=== PATIENT | male | born 1975 | race Caucasian/White ===

== ENCOUNTER 2020-04-22 07:27 | Emergency (ER) | payer OTHER ==
[~2020-04-22] VITALS: Ht 175.3 cm; Wt 72.6 kg
[2020-04-22 07:35] VITALS: BP 111/81
--- NOTE | 2020-04-22 07:58 | NUR ---
Patient discharged to home in stable condition. Written and verbal after care instructions given. Patient verbalizes understanding of instruction. Prescription given, left in no distress.
[2020-04-22] MEDS ORDERED: SULFAMETH/TRIMETH 800/160 MG 1 UDTAB TABLET PO ONE (08:00)
== END 2020-04-22 07:58 | disposition home or self-care (01) ==
LOC: ER 07:34
DX: N48.89 Other specified disorders of penis (principal); R21 Rash and other nonspecific skin eruption

== ENCOUNTER 2020-05-02 18:44 | Emergency (ER) | payer OTHER ==
[~2020-05-02] VITALS: Ht 175.3 cm; Wt 72.6 kg
[2020-05-02 18:53] VITALS: BP 149/74
[2020-05-02] MEDS ORDERED: LIDOCAINE 1%-EPI 1:100,000 20 ML VIAL ONE (19:03)
== END 2020-05-02 20:00 | disposition home or self-care (01) ==
LOC: ER 18:48
DX: S61.411A Laceration without foreign body of right hand, initial encounter (principal); Z60.2 Problems related to living alone; W22.8XXA Striking against or struck by other objects, initial encounter; Y93.89 Activity, other specified; Y92.89 Other specified places as the place of occurrence of the external cause; Y99.8 Other external cause status
CPT/HCPCS: 12001; 99283; J3490

== ENCOUNTER 2020-08-29 18:00 | Emergency (ER) | payer OTHER ==
[~2020-08-29] VITALS: Ht 175.3 cm; Wt 72.6 kg
[2020-08-29 18:45] VITALS: BP 133/87
--- NOTE | 2020-08-29 18:45 | NUR ---
covid swab and rapid influenza swab sent to lab.
--- NOTE | 2020-08-29 18:46 | NUR ---
Patient discharged to home in stable condition. Written and verbal after care instructions given. Patient verbalizes understanding of instruction.
== END 2020-08-29 18:46 | disposition home or self-care (01) ==
LOC: ER 18:07
DX: J02.9 Acute pharyngitis, unspecified (principal); Z20.822 Contact with and (suspected) exposure to COVID-19
CPT/HCPCS: 87070; 87880; 99283; C9803; U0003; 86403-TC

== ENCOUNTER 2020-12-06 13:40 | Emergency (ER) | payer OTHER ==
[~2020-12-06] VITALS: Ht 175.3 cm; Wt 72.6 kg
[2020-12-06 13:45] VITALS: BP 141/83
--- NOTE | 2020-12-06 13:48 | NUR ---
URINE SPECIMEN COLLECTED AND SENT TO LAB.
[2020-12-06] MEDS ORDERED: DOXY100T2 PO (15:22)
[2020-12-06] MEDS ORDERED: CEFTRIAXONE 1 G VIAL IM ONE (15:30)
[2020-12-06] MEDS ORDERED: DOXYCYCLINE HYCLATE (100 MG) 100 MG TABLET PO ONE (15:30)
[2020-12-06] MEDS ORDERED: DOXYCYCLINE HYCLATE (100 MG) 100 MG TABLET ONE (15:39)
[2020-12-06] MEDS ORDERED: CEFTRIAXONE 500 MG VIAL ONE (15:39)
[2020-12-06] MEDS ORDERED: LIDOCAINE /MPF 1% VIAL 5 ML VIAL ONE (15:40)
[2020-12-06 16:28] LABS: BILIRUBIN,URINE Negative (NEGATIVE); COLOR,URINE YELLOW (YELLOW); LEUKOCYTE ESTERASE ,URINE Trace (NEGATIVE); NITRITE, URINE Negative (NEGATIVE); PH,URINE 8.5 (5.0-8.0); PROTEIN,URINE Trace mg/dl (NEGATIVE); UGLUCOSE Negative (NEGATIVE)
[2020-12-06 16:34] LABS: BACTERIA,URINE Few /HPF (None Seen); SQUAMOUS EPITHELIAL CELL,UR Few /HPF (None Seen)
== END 2020-12-06 16:14 | disposition home or self-care (01) ==
LOC: ER 13:46
DX: N34.2 Other urethritis (principal); Z60.2 Problems related to living alone
CPT/HCPCS: 81001; 87086; 87491; 87591; 96372; 99283; J0696; J3490

== ENCOUNTER 2021-02-21 12:46 | Emergency (ER) | payer OTHER ==
[~2021-02-21] VITALS: Ht 175.3 cm; Wt 74.8 kg
[~2021-02-21 12:46] MED LIST: DOXY100T2 PO
[2021-02-21 12:56] VITALS: BP 136/83
[2021-02-21] MEDS ORDERED: IBUP-1955 PO (15:41)
[2021-02-21] MEDS ORDERED: CYCL10TA9 PO (15:41)
[2021-02-21] MEDS ORDERED: MUPI22OI2 TP (15:41)
--- NOTE | 2021-02-21 15:45 | NUR ---
Patient discharged to home in stable condition. Written and verbal after care instructions given. Patient verbalizes understanding of instruction.
== END 2021-02-21 15:49 | disposition home or self-care (01) ==
LOC: ER 12:55
DX: M62.838 Other muscle spasm (principal); L98.9 Disorder of the skin and subcutaneous tissue, unspecified; M25.512 Pain in left shoulder; Z60.2 Problems related to living alone
CPT/HCPCS: 72050-TC; 73030-TC

== ENCOUNTER 2022-06-30 18:04 | Emergency (ER) | payer MEDICAID, OTHER ==
[~2022-06-30] VITALS: Ht 175.3 cm; Wt 72.6 kg
[~2022-06-30 18:04] MED LIST changes: +CYCL10TA9 PO; +IBUP-1955 PO; +MUPI22OI2 TP
--- NOTE | 2022-06-30 18:18 | NUR ---
PT EVELINA FROM HOME ACCOMPANIED BY PAM. PER EMS REPORT, BROTHER CALLED 911 S/P PATIENT TOLD HIM HE IS GONNA HANG HIMSELF. PT DENIES SI WHILE BEING TRIAGE. PAM SKINNER PUT PATIENT ON 5150 HOLD FOR DTS. TACHYCARDIC JACKER. SITTER AT BEDSIDE. AWAITING MD GREEN.
--- NOTE | 2022-06-30 18:31 | NUR ---
DR GENAO AT BEDSIDE FOR EVAL.
--- NOTE | 2022-06-30 18:40 | NUR ---
RETENTION REPRESENTATIVE AT BEDSIDE FOR BLOOD DRAW. PT UNABLE TO PROVIDE URINE SAMPLE AT THIS TIME PROVIDED W ORAL FLUIDS. URINAL AT BEDSIDE.
[2022-06-30 19:39] LABS: ALANINE AMINOTRANSFERASE 23 U/L (12-78); ALBUMIN 3.4 g/dL (3.4-5.0); ALCOHOL, BLOOD 3 mg/dL (0-0); ALKALINE PHOSPHATASE 79 U/L (46-116); ASPARTATE AMINOTRANSFERASE 21 U/L (15-37); BILIRUBIN,DIRECT 0.1 mg/dL (0.0-0.2); BILIRUBIN,TOTAL 0.5 mg/dL (0.2-1.0); CARBON DIOXIDE 30 mmol/L (21-32); CHLORIDE 105 mmol/L (98-107); CREATININE 1.2 mg/dL (0.6-1.3); GLUCOSE 105 mg/dL (74-106); POTASSIUM 3.9 mmol/L (3.5-5.1); SODIUM SERUM 138 mmol/L (136-145); TOTAL PROTEIN, SERUM 7.2 g/dL (6.4-8.2); UREA NITROGEN, BLOOD 21 mg/dL (7-18)
[2022-06-30 19:41] LABS: ACETAMINOPHEN 0 ug/ml (10-30)
--- NOTE | 2022-06-30 20:39 | NUR ---
COVID ANTIGEN SWAB COLLECTED AND SENT TO LAB
[2022-06-30 21:09] LABS: BASOPHILS # (AUTO) 0.1 K/uL (0.0-0.2); BASOPHILS % (AUTO) 0.9 % (0.0-2.0); EOSINOPHILS % (AUTO) 1.6 % (0.0-6.0); HEMATOCRIT 42 % (39-51); HEMOGLOBIN 14.3 g/dL (13.5-17.5); LYMPHOCYTES % (AUTO) 31.3 % (20.0-44.0); MEAN CORPUSCULAR HGB CONC 34 g/dl (31.0-36.0); MEAN CORPUSCULAR VOLUME 88 fL (80-96); MONOCYTES # (AUTO) 0.9 K/uL (0.1-1.30); MONOCYTES % (AUTO) 9.1 % (2.0-12.0); NEUTROPHILS # (AUTO) 5.5 K/uL (1.8-8.9); NEUTROPHILS % (AUTO) 57.1 % (43.0-81.0); PLATELET COUNT (AUTO) 307 K/uL (150-450); RED BLOOD CELL COUNT(AUTO) 4.79 MIL/uL (4.5-6.0); WHITE BLOOD COUNT (AUTO) 9.5 K/uL (4.3-11.0)
[2022-07-01 01:10] LABS: BILIRUBIN,URINE NEGATIVE (NEGATIVE); COLOR,URINE YELLOW (YELLOW); LEUKOCYTE ESTERASE ,URINE NEGATIVE (NEGATIVE); NITRITE, URINE NEGATIVE (NEGATIVE); PROTEIN,URINE NEGATIVE (NEGATIVE); UGLUCOSE NEGATIVE (NEGATIVE); UROBILINOGEN,URINE 0.2 EU/dL (0.2)
--- NOTE | 2022-07-01 05:44 | NUR ---
Patient discharged to home in stable condition. Written and verbal after care instructions given. Patient verbalizes understanding of instruction. Pt ambulatory with a steady gait
[2022-07-01 05:48] VITALS: BP 124/69
== END 2022-07-01 05:49 | disposition home or self-care (01) ==
LOC: ER 18:37
DX: Z00.8 Encounter for other general examination (principal); F19.10 Other psychoactive substance abuse, uncomplicated; Z81.8 Family history of other mental and behavioral disorders; R00.0 Tachycardia, unspecified; Z20.822 Contact with and (suspected) exposure to COVID-19
CPT/HCPCS: 99285; 85025; 80048; 80076; 36415; 87426; 80143; 80320; 80307; 81003; C9803; G0480

== ENCOUNTER 2024-08-12 12:53 | Emergency (ER) | payer MEDICAID, OTHER ==
[~2024-08-12] VITALS: Ht 175.3 cm; Wt 70.3 kg
[2024-08-12] MEDS ORDERED: KETOROLAC TROMETHAMINE INJ 30 MG/ML VIAL ONE (13:14)
[2024-08-12] MEDS: KETOROLAC TROMETHAMINE INJ 30 MG/ML VIAL IM ONE (13:21)
[2024-08-12 13:37] VITALS: BP 128/80; TEMP 98.9; O2SAT 99
== END 2024-08-12 13:45 | disposition home or self-care (01) ==
LOC: ER 12:53
DX: B34.9 Viral infection, unspecified (principal); R05.9 Cough, unspecified; Z79.1 Long term (current) use of non-steroidal anti-inflammatories (NSAID)
CPT/HCPCS: 99283; 96372; J1885